=== PATIENT | male | born 1970 | race Two or more races ===

== ENCOUNTER 2017-12-04 10:06 | Inpatient (IN) | payer BC, OTHER ==
[~2017-12-04] VITALS: Ht 167.6 cm; Wt 86.2 kg
[2017-12-04] MEDS ORDERED: SODIUM CHLORIDE 0.9% 1,000 ML IVB ONE (10:25)
[2017-12-04] MEDS ORDERED: SODIUM CHLORIDE 0.9% 1,000 ML IV ONE (10:45)
[2017-12-04 10:47] LABS: Basophils # (auto) 0 uL; Basophils % (auto) 0.5 % (0.0-2.0); Eosinophils # (auto) 0 uL; Eosinophils % (auto) 0.2 % (0.0-7.0); Hematocrit 35.4 % (41.0-53.0); Lymphocytes # (auto) 1.9 uL; Lymphocytes % (auto) 20.5 % (10.0-50.0); Mean Corpuscular Hemoglobin 28.9 pg (28.0-32.0); Mean Corpuscular Hgb Conc. 33.9 g/dL (32.0-36.0); Mean Corpuscular Volume 85.1 fL (80.0-100.0); Monocytes # (auto) 0.6 uL; Monocytes % (auto) 6.8 % (0.0-12.0); Neutrophils # (auto) 6.5 uL; Platelet Count (auto) 299 10^3/uL (140-450); Red Blood Cells 4.16 10^6/uL (4.5-5.90); Red Cell Distribution Width 13.3 % (11.8-14.3)
[2017-12-04 10:59] LABS: INR 1.05 (0.9-1.15); Partial Thromboplastin Time 21.7 sec (23.78-33.04); Prothrombin Time 11.2 sec (9.27-12.13)
[2017-12-04 11:13] LABS: Alanine Aminotransferase 16 U/L (16-61); Albumin 3.1 g/dL (3.4-5.0); Alkaline Phosphatase 46 U/L (45-117); Anion Gap 12 (5-15); Aspartate Aminotransferase 6 U/L (15-37); BUN/Creatinine Ratio 63.5; Bilirubin, Total 0.9 mg/dL (0.2-1.0); Blood Urea Nitrogen 54 mg/dL (7-18); Calcium 8.1 mg/dL (8.5-10.1); Carbon Dioxide 24 mmol/L (21-32); Chloride 104 mmol/L (98-107); GFR African American 124 mL/min; GFR Non-African American 103 mL/min; Glucose 327 mg/dL (74-106); Potassium 3.6 mmol/L (3.5-5.1); Sodium 140 mmol/L (136-145); Total Protein 6.1 g/dL (6.4-8.2)
[2017-12-04 15:10] LABS: Urine Bacteria NONE SEEN /hpf (None Seen); Urine Blood Negative /uL (Negative); Urine Specific Gravity 1.022 (1.001-1.035); Urine WBC <1 /hpf (0 - 3)
[2017-12-04] MEDS ORDERED: PANTOPRAZOLE 40 MG/10 ML VIAL IV ONE (18:30)
[2017-12-04] MEDS ORDERED: MORPHINE SULFATE 8mg/ml INJ SDV IV PRN ×3 (18:30)
[2017-12-04] MEDS ORDERED: PROMETHAZINE HCL 25 MG/ML 1ML IV PRN (18:30)
[2017-12-04] MEDS ORDERED: LORazepam 2MG/ML-1ML VIAL IV PRN (18:30)
[2017-12-04] MEDS ORDERED: NITROGLYCERIN 0.4 MG SL TAB SL PRN (18:30)
[2017-12-04 19:09] LABS: CRP High Sensitivity 0.11 mg/dL (< 0.3)
[2017-12-04] MEDS: SODIUM CHLORIDE 0.9% 1,000 ML IV SCH (19:30)
[2017-12-04 19:37] LABS: Carcinoembryonic Antigen < 0.50 ng/mL (<5.0 OR =)
[2017-12-04 19:38] LABS: Folate (Folic Acid) 5.15 ng/mL (5.38-24)
[2017-12-04] MEDS: metroNIDAZOLE 500MG/100ML 100 ML IV SCH (22:25)
[2017-12-04] MEDS: PANTOPRAZOLE 40 MG/10 ML VIAL IV SCH (22:25)
[2017-12-05 01:04] LABS: Hematocrit 30.1 % (41.0-53.0); Hemoglobin 10.2 g/dL (13.5-17.5)
[2017-12-05] MEDS: SODIUM CHLORIDE 0.9% 1,000 ML IV SCH ×2 (02:36→11:58)
[2017-12-05] MEDS: metroNIDAZOLE 500MG/100ML 100 ML IV SCH ×2 (06:25→14:10)
[2017-12-05 06:33] LABS: Basophils # (auto) 0 uL; Basophils % (auto) 0.5 % (0.0-2.0); Eosinophils # (auto) 0 uL; Eosinophils % (auto) 0.5 % (0.0-7.0); Hemoglobin 9.8 g/dL (13.5-17.5); Lymphocytes # (auto) 2.3 uL; Mean Corpuscular Hemoglobin 29.1 pg (28.0-32.0); Mean Corpuscular Hgb Conc. 33.9 g/dL (32.0-36.0); Mean Corpuscular Volume 85.9 fL (80.0-100.0); Monocytes # (auto) 0.6 uL; Neutrophils # (auto) 3.7 uL; Nucleated Red Blood Cells % 0.1 %; Platelet Count (auto) 255 10^3/uL (140-450); Red Blood Cells 3.37 10^6/uL (4.5-5.90); Red Cell Distribution Width 13.6 % (11.8-14.3); White Blood Cell 6.7 10^3/uL (4.4-10.8)
[2017-12-05 07:07] LABS: BUN/Creatinine Ratio 43.3; Bilirubin, Total 0.8 mg/dL (0.2-1.0); Calcium 8.1 mg/dL (8.5-10.1); Potassium 3.5 mmol/L (3.5-5.1); Total Protein 5.7 g/dL (6.4-8.2)
[2017-12-05] MEDS ORDERED: LEVOFLOXACIN 500MG 100 ML IV SCH (10:00)
[2017-12-05] MEDS ORDERED: LIDOCAINE VISCOUS 2% 15ML UD ONE (10:15)
[2017-12-05] MEDS ORDERED: diphenhdrAMINE HCL 50 MG/1 ML VL ONE (10:16)
[2017-12-05] MEDS: MIDAZOLAM HCL 5 MG/ML-1ML VIAL ONE ×2 (10:46→10:50)
[2017-12-05] MEDS: fentaNYL CITRATE 100 MCG/2 ML VL ONE ×2 (10:46→10:50)
[2017-12-05] MEDS: PANTOPRAZOLE 40 MG/10 ML VIAL IV SCH (11:58)
[2017-12-05 13:22] LABS: Hematocrit 27.6 % (41.0-53.0)
[2017-12-05 18:05] VITALS: BP 107/59
[2017-12-05 18:15] VITALS: BP 112/60
== END 2017-12-05 18:26 | disposition home or self-care (01) | DRG 378 ==
LOC: ER 10:06 → TELE 10:07
PROVIDERS: ADMIT Internal Medicine; ATTEND Family Medicine
PROC: 0DB68ZX Excision of Stomach, Via Natural or Artificial Opening Endoscopic, Diagnostic (ICD-10-PCS; principal; 2017-12-05 10:41)
DX: K92.1 Melena (principal); E44.1 Mild protein-calorie malnutrition; E11.65 Type 2 diabetes mellitus with hyperglycemia; D50.0 Iron deficiency anemia secondary to blood loss (chronic); I10 Essential (primary) hypertension; E86.0 Dehydration; K29.60 Other gastritis without bleeding; K57.10 Diverticulosis of small intestine without perforation or abscess without bleeding; K29.80 Duodenitis without bleeding; Z68.30 Body mass index [BMI] 30.0-30.9, adult
CPT/HCPCS: 36415; 71046; 74176; 80053; 80061; 81001; 82150; 82378; 82550; 82607; 82746; 83690; 83735; 83880; 84443; 84484; 85014; 85018; 85025; 85045; 85610; 85652; 85730; 86141; 86850; 86900; 86901; 93005; 94761; 96361; 96374; 96375; C9113; J1956; J2250; J3490